=== PATIENT | female | born 2000 | race Caucasian/White ===

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

== ENCOUNTER → 2020-01-18 | Outpatient (CLI) | payer BC, OTHER ==
[2020-01-18 13:15] LABS: ALBUMIN 4.3 GM/DL (3.2-4.5); CHLORIDE 109 MMOL/L (98-107); POTASSIUM 4.3 MMOL/L (3.6-5.0); SODIUM 142 MMOL/L (135-145)
[2020-01-18 13:16] LABS: CALCIUM 9.1 MG/DL (8.5-10.1)
[2020-01-18 13:17] LABS: GLUCOSE 91 MG/DL (70-105); TOTAL PROTEIN 6.9 GM/DL (6.4-8.2); TRIGLYCERIDES 47 MG/DL (<150)
[2020-01-18 13:18] LABS: CARBON DIOXIDE 23 MMOL/L (21-32)
[2020-01-18 13:19] LABS: BILIRUBIN,TOTAL 0.7 MG/DL (0.1-1.0)
[2020-01-18 13:20] LABS: ALKALINE PHOSPHATASE 65 U/L (40-136)
[2020-01-18 13:21] LABS: CREATININE SERUM 0.83 MG/DL (0.60-1.30); GFR ESTIMATED > 60
[2020-01-18 13:22] LABS: BUN/CREATININE RATIO 13
[2020-01-18 13:24] LABS: ALANINE AMINOTRANSFERASE 17 U/L (0-55)
== END ==
LOC: WSo 12:49
PROVIDERS: ATTEND Physician Assistant
DX: L70.0 Acne vulgaris (principal)
CPT/HCPCS: 36415; 80053; 84478; 84703

== ENCOUNTER → 2022-04-24 | Outpatient (CLI) | payer OTHER | LOC: CARD 09:10 | PROVIDERS: ATTEND Family Medicine | DX: I49.9 Cardiac arrhythmia, unspecified (principal); Z82.49 Family history of ischemic heart disease and other diseases of the circulatory system | CPT/HCPCS: 93005 ==

== ENCOUNTER → 2022-05-02 | Outpatient (CLI) | payer OTHER | LOC: CARD 08:00 | PROVIDERS: ATTEND Family Medicine | DX: I49.1 Atrial premature depolarization (principal) | CPT/HCPCS: 93242 ==

== ENCOUNTER 2023-07-19 13:56 | Emergency (ER) | payer OTHER ==
[~2023-07-19] VITALS: Ht 177.8 cm; Wt 81.6 kg
[2023-07-19 14:32] LABS: BILIRUBIN,URINE NEGATIVE (NEGATIVE); CLARITY,URINE CLEAR; COLOR,URINE YELLOW; GLUCOSE, URINE (UA) NEGATIVE (NEGATIVE); KETONES,URINE NEGATIVE (NEGATIVE); LEUKOCYTE ESTERASE ,URINE TRACE (NEGATIVE); NITRITE,URINE NEGATIVE (NEGATIVE); PH,URINE 5.5 (5-9); PROTEIN,URINE NEGATIVE (NEGATIVE)
--- NOTE | 2023-07-19 14:32 | ED GU-Female ---
General Chief Complaint: - Reproductive Stated Complaint: POSSIBLE UTI | CHILLS | LOWER BACK PAIN Nursing Triage Note: pt ambulatory to room. states she has a hx of frequent uti's and felt one come on this morning. states she has had fever/chills at home and backache, frequency, and burning with urination. pt is A&Ox4, speech normal on arrival Source: patient Exam Limitations: no limitations (IMAN LUNA APRN) History of Present Illness Date Seen by Provider: Jul 19, 2023 Time Seen by Provider: 13:59 Initial Comments 22-year-old female presents to the ER with complaint of possible UTI. She reports mild back pain, chills, low-grade temperature, frequent urination, and burning after urination. Symptoms started today. She reports frequent UTIs, thinks she has had approximately 3-4 this year. She denies abdominal pain, nausea, vomiting, diarrhea, vaginal bleeding and discharge. Last bowel movement was this morning and normal. (IMAN LUNA APRN) Allergies and Home Medications Allergies Coded Allergies: No Known Drug Allergies (Unverified , 04/27/17) Patient Home Medication List Home Medication List Reviewed: Yes (IMAN LUNA APRN) Clindamycin Phos (Clindamycin Phosphate) 60 Ml Lotion, (Reported) Entered as Reported by: KASSANDRA NOLEN on 04/27/172216 Nitrofurantoin Monohyd/M-Cryst (Macrobid 100 mg Capsule) 100 Mg Capsule, 1 TAB PO BID Prescribed by: MAURICIO OLEA on 04/27/17 2308 Sulfamethoxazole/Trimethoprim (Sulfamethoxazole-Tmp Ds Tablet) 1 Each Tablet, ( Reported) Entered as Reported by: KASSANDRA NOLEN on 04/27/17 2217 Sulfamethoxazole/Trimethoprim (Bactrim Ds Tablet) 1 Each Tablet, 1 EACH PO BID Prescribed by: Iman King on 07/19/23 1526 Sulfamethoxazole/Trimethoprim (Bactrim Ds Tablet) 1 Each Tablet, 1 EACH PO BID Prescribed by: Iman King on 07/19/23 1531 Review of Systems Review of Systems Constitutional: see HPI (IMAN LUNA APRN) Past Ydripir-Nmhete-Taffvh Hx Seasonal Allergies Seasonal Allergies: Yes (IMAN LUNA APRN) Past Medical History Surgeries: Yes Adenoidectomy, Tonsillectomy Respiratory: No Cardiac: No Neurological: No Genitourinary: No Gastrointestinal: No Musculoskeletal: No Endocrine: No HEENT: No Cancer: No Psychosocial: No Integumentary: Yes (folliculitis on legs, acne) Blood Disorders: No (IMAN LUNA APRN) Physical Exam Vital Signs Vital Signs - First Documented 07/19/23 14:02 Temp 37.3 Pulse 88 Resp 16 B/P (MAP) 144/89 (107) Pulse Ox 100 (LAURY GILLIS MD) Vital Signs Capillary Refill : (IMAN LUNA APRN) Height, Weight, BMI Height: 5'10.00" Weight: 200lbs. oz. [id number]; 25.00 BMI Method:Stated General Appearance: WD/WN, no apparent distress Neck: supple, normal inspection Cardiovascular: regular rate, rhythm Respiratory: lungs clear, normal breath sounds, no respiratory distress, no accessory muscle use Back: no CVA tenderness Extremities: normal range of motion, normal inspection Neurologic/Psychiatric: alert, normal mood/affect Skin: normal color, warm/dry (IMAN LUNA APRN) Progress/Results/Core Measures Suspected Sepsis SIRS Temperature: Pulse: 88 Respiratory Rate: 16 Blood Pressure 144 /89 Mean: 107 (IMAN LUNA APRN) Results/Orders Lab Results Laboratory Tests Test 07/19/23 14:05 Range/Units Urine Color YELLOW Urine Clarity CLEAR Urine pH 5.5 5-9 Urine Specific [place] <=1.005 1.016-1.022 Urine Protein NEGATIVE NEGATIVE Urine Glucose (UA) NEGATIVE NEGATIVE Urine Ketones NEGATIVE NEGATIVE Urine Nitrite NEGATIVE NEGATIVE Urine Bilirubin NEGATIVE NEGATIVE Urine Urobilinogen 0.2 < = 1.0 MG/DL Urine Leukocyte Esterase TRACE H NEGATIVE Urine RBC (Auto) TRACE H NEGATIVE Urine RBC NONE /HPF Urine WBC RARE /HPF Urine Squamous Epithelial Cells RARE /HPF Urine Crystals NONE /LPF Urine Bacteria TRACE /HPF Urine Casts NONE /LPF Urine Mucus NEGATIVE /LPF Urine Culture Indicated NO (LAURY GILLIS MD) Vital Signs/I&O Capillary Refill : (IMAN LUNA APRN) Blood Pressure Mean: 107 Progress Note : Progress Note Patient seen and evaluated, resting comfortably in bed, no acute distress. Based on exam and symptoms, this is likely a urinary tract infection. Urinalysis and urine ordered. Patient's vitals are stable, heart rate in the 80s, temperature 99.2. I do not think that patient requires lab work, although this was considered. 1501 UA reviewed. Negative for nitrites, it does show trace leukocytes, trace RBCs, rare WBCs, rare squamous epithelial cells, trace bacteria. Urine negative. Due to symptoms, will go ahead and treat patient for UTI, although urinalysis is not convincing for UTI. Patient's symptoms started today, UTI may likely just have been caught early. Urine culture ordered. Results discussed with patient. Will give first dose of Bactrim and a take-home pack due to it being a holiday and the pharmacies are closed. Patient is stable for discharge. Discharge instructions and return precautions provided. (IMAN LUNA APRN) Departure Impression Primary Impression: Urinary tract infection Disposition: HOME, SELF-CARE Condition: Stable Departure-Patient Inst. Decision time for Depature: 15:12 (IMAN LUNA APRN) Referrals: Nahid WYLIE MD, JACQUELINE S DO (PCP/Family) Primary Care Physician Patient Instructions: Urinary Tract Infection, Adult (DC) Add. Discharge Instructions: Complete full course of antibiotic as prescribed. You will take it twice a day for 5 days total. Follow-up with your primary care provider after you complete the antibiotic. Follow-up with Dr. Wylie, urology. Return for severe lower back pain, inability to urinate, high fever, or any other new, concerning, or worsening symptoms. All discharge instructions reviewed with patient and/or family. Voiced understanding. Scripts Sulfamethoxazole/Trimethoprim (Bactrim Ds Tablet) 1 Each Tablet 1 EACH PO BID, #7 TAB 0 Refills Prov: IMAN LUNA APRN 07/19/23 Sulfamethoxazole/Trimethoprim (Bactrim Ds Tablet) 1 Each Tablet 1 EACH PO BID, #7 TAB 0 Refills Prov: IMAN LUNA APRN 07/19/23 ATTENDING PHYSICIAN NOTE: I was physically present as attending physician in the emergency department during the care of this patient, but I was not directly involved in the decision making or delivery of care for this patient. (LAURY GILLIS MD) IMAN LUNA APRN Jul 19, 2023 14:32 LAURY GILLIS MD Jul 20, 2023 14:02
[2023-07-19 14:33] LABS: BACTERIA,URINE TRACE /HPF; SQUAMOUS EPITHELIAL CELL,UR RARE /HPF; WBC,URINE RARE /HPF
[2023-07-19] MEDS ORDERED: RX-TRIMETH/SULFA. 160-800 MG (BACTRIM DS) TAB PPK#2 PO STA (15:01)
[2023-07-19] MEDS ORDERED: Sulfamethoxazole/Trimethoprim DS TABLET PO ONE (15:15)
[2023-07-19] MEDS ORDERED: SULF1TAB38 PO ×2 (15:26→15:31)
[2023-07-19 15:35] VITALS: BP 113/79
== END 2023-07-19 15:38 | disposition home or self-care (01) ==
LOC: EDUNIT# 13:56 → ER 13:59
DX: N39.0 Urinary tract infection, site not specified (principal)
CPT/HCPCS: 81000; 84703; 87088; 99283